=== PATIENT | male | born 1965 | race African-American/Black ===

== ENCOUNTER 2019-04-14 03:43 | Emergency (ER) | payer MEDICAID ==
[~2019-04-14] VITALS: Ht 180.3 cm; Wt 86.2 kg
[2019-04-14 03:53] VITALS: BP 122/91
[2019-04-14] MEDS ORDERED: ACETAMINOPHEN 500 MG TAB PO ONE (04:45)
[2019-04-14] MEDS ORDERED: IBUPROFEN 800 MG TAB PO ONE (04:45)
[2019-04-14] MEDS ORDERED: KETOROLAC TROMETH 60MG/2ML VIAL IM ONE (05:45)
== END 2019-04-14 06:17 | disposition home or self-care (01) ==
LOC: ER 03:46
DX: S62.336A Displaced fracture of neck of fifth metacarpal bone, right hand, initial encounter for closed fracture (principal); I10 Essential (primary) hypertension; Z90.49 Acquired absence of other specified parts of digestive tract; W10.9XXA Fall (on) (from) unspecified stairs and steps, initial encounter; Y93.89 Activity, other specified; Y99.8 Other external cause status; Y92.89 Other specified places as the place of occurrence of the external cause
CPT/HCPCS: 29125; 73130; 96372; 99283; J1885

== ENCOUNTER 2019-04-16 11:34 | Emergency (ER) | payer MEDICAID ==
[~2019-04-16] VITALS: Ht 180.3 cm; Wt 88.5 kg
[2019-04-16 11:59] VITALS: BP 102/76
== END 2019-04-16 12:23 | disposition home or self-care (01) ==
LOC: ER 11:36
DX: M79.641 Pain in right hand (principal); I10 Essential (primary) hypertension; F17.210 Nicotine dependence, cigarettes, uncomplicated; Z76.0 Encounter for issue of repeat prescription; Z90.49 Acquired absence of other specified parts of digestive tract